=== PATIENT | male | born 1965 | race Caucasian/White ===

== ENCOUNTER 2023-06-21 04:16 | Inpatient (IN) | payer BC, SELFPAY ==
[2023-06-21 05:21] VITALS: BMI 32.3
[2023-06-21 06:00] VITALS: BP 172/100; PULSE 80; RESP 18; TEMP 36.6; O2SAT 98
--- NOTE | 2023-06-21 07:07 | PC.ADMIT ---
Patient arrived to at approximately 0430 via ems, wouldnt sign a CV before entering the unit. Lakhwinder states I dont need to be here so ems took him to the ED where the MD signed a section 12B. Patient back to unit very frustrated and angry. He states that nobody told him he was going to transfer here and that everything he has said was misconstrued. RN spent some time talking him down and listening. Patient states he does not want medications if he doesnt have too and that he never said he was having thoughts of killing himself. He states he hasnt felt that way for at least 2 years. He states he has a therapist he has been seeing for the past 20 yrs and a woman whom he calls his sister who he has known for 50 yrs. He is alert, educated, oriented. His skin is intact. He is independent and took a shower this morning. WIll let patient get some sleep and re- approach with paperwork this morning, evening, or night. No acute issues, Will continue to monitor.
--- NOTE | 2023-06-21 13:13 | HO.PM.IMCN ---
History of Present Illness Data of Consult Service Date: 06/21/23 Requesting physician: Domiinc Eaton Primary Care Provider: Unknown Physician HPI Reason for consult: medical h&p 57-year-old male with history of possible TIA, fatty liver disease, and history of gastric bypass surgery admitted to Psychiatry from [facility] ED with consult placed to hospitalist service for medical H and P. He had initially presented to [facility] ED due to concerns of TIA versus CVA. He had been experiencing tingling sensation left side of the face, left arm, left leg, lethargy for 2 days and then developed some word-finding difficulty. Neuro exam was benign and patient was able to feel tingling sensation on exam. Head CT was negative for any acute intracranial abnormality. He was evaluated by Neurology who felt his symptoms were psychogenic in nature. EKG showed NSR, rate [address]/T-wave abnormalities. Hematology and chemistry studies were unremarkable. He then began expressing SI and was transferred to psychiatric facility for further management. He states he has had similar episodes to this in the past. He does take a baby aspirin on a daily basis. Blood pressure this morning was elevated 172/100 but states he no longer has hypertension since his gastric bypass procedure. Blood pressure was rechecked on exam and was 150/82. He does not smoke cigarettes is not diabetic does not use illicit substances. Occasional alcohol use. Does smoke marijuana on a daily basis. He states that he does take Zyrtec on a daily basis as well as cyclobenzaprine 10 mg at bedtime to help with restless leg syndrome. He otherwise has no complaints. [facility] Medical History (Updated 06/21/23 @ 13:22 by CLINTON Gregorio) History of TIA (transient ischemic attack) NAFLD (nonalcoholic fatty liver disease) Surgical History (Updated 06/21/23 @ 13:23 by CLINTON Gregorio) History of gastric bypass Social History Household Members: Unknown / Unable to assess Housing: Unknown / Unable to assess Do you presently have visiting nurse or other home services: No Unable to assess alcohol history related to: Refusing to respond Patient Tobacco Use Status: Refuse Tobacco use screen Use of substances other than those prescribed or required for medical reasons: Unknown Currently Displaying Signs/Symptoms of Drug Intoxication Withdrawal: No Advance Directives: No Advance Directives Information Provided: No Do you have thoughts of harming others: None Do you have a plan to hurt others: No Plan Recently lost weight without trying: No Eating poorly because of decreased appetite: No Nutrition Risks: No Nutritional Risk Meds Allergies Allergy/AdvReac Type Severity Reaction Status Date / Time fluocinonide Allergy Rash Verified 06/20/23 22:47 Penicillins Allergy Rash Verified 06/20/23 22:48 shellfish derived Allergy Anaphylaxis Verified 06/20/23 22:47 Active Medications: Current Medications Acetaminophen (Acetaminophen 325 Mg Tablet) 650 mg PO Q6H PRN PRN Reason: Headache/Pain Mild Scale (1-3) Al Hydroxide/Mg Hydroxide (Magnesium Hydrox/Alum Hydrox 30 Ml Oral.Susp) 30 ml PO Q6H PRN PRN Reason: Heartburn/Nausea Hydroxyzine HCl (Hydroxyzine Hcl 25 Mg Tablet) 25 mg PO Q6H PRN PRN Reason: Anxiety Magnesium Hydroxide (Milk Of Magnesia 30 Ml Oral.Susp) 30 ml PO DAILY PRN PRN Reason: Constipation Nicotine Polacrilex (Nicotine Polacrilex 2 Mg Gum) 4 mg BUCCAL Q2H PRN PRN Reason: Nicotine Cravings Olanzapine (Olanzapine 5 Mg Tablet) 5 mg PO TID PRN PRN Reason: agitation Trazodone HCl (Trazodone Hcl 50 Mg Tablet) 50 mg PO BEDTIME MRX1 PRN PRN Reason: Insomnia Physical Exam Vital Signs and Narrative: Vital Signs: Last Vital Signs Temp 97.8 F 06/21/23 06:00 Pulse 80 06/21/23 06:00 Resp 18 06/21/23 06:00 BP 172/100 H 06/21/23 06:00 Pulse Ox 98 06/21/23 06:00 O2 Del Method Room Air 06/21/23 06:00 BMI result Body Mass Index 32.3 Constitutional - Awake and Alert, No apparent distress Eyes - PERRLA, EOMI Cardiovascular - S1S2, RRR, No edema Respiratory - Normal lung expansion, Normal respiratory effort, No respiratory distress, CTA bilaterally Gastrointestinal - NT / ND; +BS; No rebound or guarding Extremities - no calf tenderness bilaterally, no swelling Musculoskeletal - Normal inspection, normal ROM Skin - Warm/Dry Neurological - Alert & oriented x3, CN II-XII in tact, 5/5 strength BUE and BLE Psychological - Appropriate affect Assessment and Plan (1) Routine medical exam: Status: Acute Plan 57-year-old male with history of possible TIA, fatty liver disease, and history of gastric bypass surgery admitted to Psychiatry from [facility] ED with consult placed to hospitalist service for medical H and P. #Mood disorder/SI -plan per psychiatry #Possible TIA -Most recent episode paresthesias appears psychogenic rather then neurologic with negative head CT and reassuring neuro exam. Neuro exam today is nonfocal -Continue asa #Elevated blood pressure readings -pt report aggitation when bp checked earlier today -On manual recheck by me on exam, bp slightly elevated 150/82. -Monitor blood pressures -initiate antihypertensive if needed Thank you for allowing me to participate in this consult. Signing off at this time. Please do not hesitate to call for further questions. Time Spent With Patient Time: Total time managing care of this patient today ____ minutes.
[2023-06-21] MEDS: Loratadine 10 MG TABLET PO (15:05)
[2023-06-21 19:33] VITALS: BP 142/88; PULSE 88; RESP 18; TEMP 36.6; O2SAT 97
--- NOTE | 2023-06-21 19:37 | P.HPPS_ITS ---
HPI Date of Service: 06/21/23 Chief Complaint: Depressed Sources of Information: patient interviewed, chart reviewed and crisis/core team assessment reviewed HPI Subjective Notes: Juan Warning and Section 12B Healthcare Proxy: No Guardianship: No Medical Problems Affecting Mental Status: No Narrative: 57 yo male, to ER with stroke-like symptoms, severe anxiety, with SI due to significant job stress. Section 12B to [facility]. Pt reports, I am not suicidal, I love my life . 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 I was drained dry . Reports out of control anxiety where he needed to identify his triggers sooner and identify strategies to redirect himself. Reports a similiar episode in 2020. Identifies stressors as of mother 2018 where there were no services or support and difficult memories of a tough upbringing, of his dog 2022 as well. Pt is planning a move to [place] to live with friends. [employer] the stress hit so much, I had a meltdown . Staff, customers, no breaks. Reports sx were the worst he has ever felt and thought he was having an [place]/CVA. Pt will return to psychotherapy and declines medication intervention. He is finding the milieu supportive and helpful. Past Psychiatric History: Pt has a therapist of 20 years whom he is reconnecting with. She has made contact with him on the unit for support and will offer and appt with discharge. Medical Evaluation Reviewed: Yes [facility] Medical History (Updated 06/22/23 @ 17:03 by Emili Bañuelos APRN) History of TIA (transient ischemic attack) NAFLD (nonalcoholic fatty liver disease) Recurrent moderate major depressive disorder with anxiety Surgical History History of gastric bypass Family History: Parents were functioning alcoholics Brother alcoholic, of [place] No suicides No mental health diagnosed or identified he reports. Social History: Pt is a manager education at [employer] Planning a move to [place] to live with friends. Will visit for a wedding in Jun Lives alone Single , no children Parents Brother Substance History: Alcohol by history- no current substance use issues Trauma History: Physical, Emotional Diagnostics Vital Signs (24Hr): Vital Signs - 24 hr 06/21/23 06:00 06/21/23 19:33 Temperature 97.8 F 97.8 F Pulse Rate 80 88 Respiratory Rate 18 18 Blood Pressure 172/100 H 142/88 H Pulse Oximetry 98 97 Oxygen Delivery Method Room Air BMI result Body Mass Index 32.3 Labs Labs: CBC- MCHC 36.6, Plt 100, CMP- Carbox Dioxide 19, AST 68, ALT 65 Meds/Allergies Allergies Allergies Allergy/AdvReac Type Severity Reaction Status Date / Time fluocinonide Allergy Rash Verified 06/20/23 22:47 Penicillins Allergy Rash Verified 06/20/23 22:48 shellfish derived Allergy Anaphylaxis Verified 06/20/23 22:47 Mental Status Exam Mental Status Exam Patient Appearance: Appropriate Patient Orientation: Person, Place, Time and Situation Level of Consciousness: Alert Patient Behavior: Appropriate, Talkative, Cooperative and Good Eye Contact Mood Description: Appropriate and Anxious Affect Description: Anxious Patient Cognition Impaired: No Ability to Follow Directions: Good Speech Pattern: Spontaneous Speech Memory Description: Intact Hallucinations: None Delusions: Not Present Thought Process: Goal Oriented Thought Content: positive for Goal Oriented Depressive Symptoms: Increased Anxiety, Muscle Tension, Muscle Pain, Loss of Int. in Activity, Hopelessness, Isolating-Friends/Family, Increased Fatigue, Thoughts of /Suicide (denies) and Loss of Energy Judgement: Good Assessment & Plan Assessment & Plan (1) Recurrent moderate major depressive disorder with anxiety: Status: Acute Code(s): F33.1 - Major depressive disorder, recurrent, moderate; F41.9 - Anxiety disorder, unspecified Plan 57 yo male, to ER with physical sx similiar to [place], CVA with significant anxiety/stress which appears to be precipitated by his work and stressors originating from work. Hx of major depression. Pt, at this time is on a Section 12B. He denies SI, but is engaged in the milieu and utilizing his time productively to learn coping skills and methods to manage his symptoms. He has a therapist of 20 years he has just reconnected with and she has made contact with him on the unit. Plan: Pt declines psychopharmacology Encourage milieu, alliance building, aftercare planning. Collateral contacts as needed. Section 12 B to 06/24/23. Patient educated on: therapeutic strategies Informed Consent: understands Reason for continued inpatient stay Substantial Risk for: harm to self and rapid decompensation Statement Statement: I have reviewed the history and physical and performed a pertinent examination on my patient. No changes have occurred unless specified. If the History and Physical was not performed prior to admission, the Hospitalist's service will be consulted for completing the admission physical. Time Spent With Patient Time: Total time managing care of this patient today ____ minutes.
[2023-06-21] MEDS: Cyclobenzaprine HCl 10 MG TABLET PO (20:10)
[2023-06-21] MEDS: traZODone HCL 50 MG TABLET PO (20:11)
[2023-06-21] MEDS: hydrOXYzine HCL 25 MG TABLET PO (20:11)
[2023-06-22 08:05] VITALS: BP 158/94; PULSE 79; RESP 18; TEMP 36.1; O2SAT 99
[2023-06-22] MEDS: Loratadine 10 MG TABLET PO (08:33)
--- NOTE | 2023-06-22 17:09 | P.PNPSI_ITS ---
Subjective Subjective Date of Service: 06/22/23 Reason For Visit: Depressed Subjective Notes: Section 12B Healthcare Proxy: No Guardianship: No Medical Problems Affecting Mental Status: No Interim History: Pt reports he finds milieu and team a good support and learning environment. Reports feeling improved. Denies SI, plan, intent. Discussed discharge for 06/24. Given information on Lmethylfolate as an option for depression treatment Medication Compliance: Yes Side effects from medications: No Attending Groups: Yes Review of Systems Acute medical concerns: No Medical Review of Systems: unchanged Review of Systems Review of Systems Yes all other systems are reviewed and are negative Reports behavioral changes Psychiatric: Reports anxiety, Reports behavioral changes, Reports depression, Reports difficulty concentrating, Reports hopelessness, Reports anhedonia, Reports panic attacks and Reports suicidal ideation (denies at this time) Mental Status Exam Mental Status Exam Patient Appearance: Appropriate Patient Orientation: Person, Place, Time and Situation Level of Consciousness: Alert Patient Behavior: Appropriate, Talkative, Cooperative and Good Eye Contact Mood Description: Appropriate and Anxious Affect Description: Anxious Patient Cognition Impaired: No Ability to Follow Directions: Good Speech Pattern: Spontaneous Speech Memory Description: Intact Hallucinations: None Delusions: Not Present Thought Process: Goal Oriented Thought Content: positive for Goal Oriented Depressive Symptoms: Increased Anxiety, Muscle Tension, Muscle Pain, Loss of Int. in Activity, Hopelessness, Isolating-Friends/Family, Increased Fatigue, Thoughts of /Suicide (denies) and Loss of Energy Judgement: Good Diagnostics Vital Signs (24Hr): Vital Signs - 24 hr 06/21/23 19:33 06/22/23 08:05 Temperature 97.8 F 96.9 F Pulse Rate 88 79 Respiratory Rate 18 18 Blood Pressure 142/88 H 158/94 H Pulse Oximetry 97 99 Oxygen Delivery Method Room Air BMI result Body Mass Index 32.3 Medications Medications Current Medications Acetaminophen (Acetaminophen 325 Mg Tablet) 650 mg PO Q6H PRN PRN Reason: Headache/Pain Mild Scale (1-3) Al Hydroxide/Mg Hydroxide (Magnesium Hydrox/Alum Hydrox 30 Ml Oral.Susp) 30 ml PO Q6H PRN PRN Reason: Heartburn/Nausea Cyclobenzaprine HCl (Cyclobenzaprine Hcl 10 Mg Tablet) 10 mg PO BEDTIME ZITA Last Admin: 06/21/23 20:10 Dose: 10 mg Hydroxyzine HCl (Hydroxyzine Hcl 25 Mg Tablet) 25 mg PO Q6H PRN PRN Reason: Anxiety Last Admin: 06/21/23 20:11 Dose: 25 mg Loratadine (Loratadine 10 Mg Tablet) 10 mg PO DAILY ZITA Last Admin: 06/22/23 08:33 Dose: 10 mg Magnesium Hydroxide (Milk Of Magnesia 30 Ml Oral.Susp) 30 ml PO DAILY PRN PRN Reason: Constipation Nicotine Polacrilex (Nicotine Polacrilex 2 Mg Gum) 4 mg BUCCAL Q2H PRN PRN Reason: Nicotine Cravings Olanzapine (Olanzapine 5 Mg Tablet) 5 mg PO TID PRN PRN Reason: agitation Trazodone HCl (Trazodone Hcl 50 Mg Tablet) 50 mg PO BEDTIME MRX1 PRN PRN Reason: Insomnia Last Admin: 06/21/23 20:11 Dose: 50 mg Allergies Allergies Allergy/AdvReac Type Severity Reaction Status Date / Time fluocinonide Allergy Rash Verified 06/20/23 22:47 Penicillins Allergy Rash Verified 06/20/23 22:48 shellfish derived Allergy Anaphylaxis Verified 06/20/23 22:47 Assessment & Plan Assessment & Plan (1) Recurrent moderate major depressive disorder with anxiety: Status: Acute Code(s): F33.1 - Major depressive disorder, recurrent, moderate; F41.9 - Anxiety di sorder, unspecified Plan 57 yo male, to ER with physical sx similiar to [place], CVA with significant anxiety/stress which appears to be precipitated by his work and stressors originating from work. Hx of major depression. Pt, at this time is on a Section 12B. He denies SI, but is engaged in the milieu and utilizing his time productively to learn coping skills and methods to manage his symptoms. He has a therapist of 20 years he has just reconnected with and she has made contact with him on the unit. Plan: Pt declines psychopharmacology Encourage milieu, alliance building, aftercare planning. Collateral contacts as needed. Section 12 B to 06/24/23. 06/22/23 TSH, B12,Folate, A1C, Lipid Panel Patient educated on: therapeutic strategies Informed Consent: understands Reason for continued inpatient stay Substantial Risk for: harm to self Time Spent With Patient Time: Total time managing care of this patient today ____ minutes.
[2023-06-22 17:33] VITALS: BP 144/85; PULSE 83; TEMP 35.6
[2023-06-22] MEDS: Cyclobenzaprine HCl 10 MG TABLET PO (20:08)
[2023-06-23] MEDS: Loratadine 10 MG TABLET PO (08:43)
[2023-06-23 08:50] VITALS: BP 147/82; PULSE 80; RESP 18; TEMP 36.2; O2SAT 96
--- NOTE | 2023-06-23 09:00 | ECG_ITS ---
Test Reason : CHEST PAIN PRIOR TO ADM Blood Pressure : / mmHG Vent. Rate : 075 BPM Atrial Rate : 075 BPM P-R Int : 136 ms QRS Dur : 080 ms QT Int : 350 ms P-R-T Axes : 059 006 038 degrees QTc Int : 390 ms Normal sinus rhythm Nonspecific T wave abnormality Abnormal ECG No previous ECGs available Referred By: Emili Bañuelos Electronically Signed By:WIL AVALOS
[2023-06-23 09:16] LABS: Estimated Average Glucose 103 mg/dL; Hemoglobin A1c % 5.2 % (<6.0)
[2023-06-23 09:26] VITALS: BMI 32.3
[2023-06-23 09:38] LABS: Cholesterol 230 mg/dL (<200); HDL Cholesterol 39 mg/dL (>40); LDL Cholesterol Calculated 163 mg/dL (<100); Triglycerides 142 mg/dL (<150)
[2023-06-23 10:08] LABS: Folate 13.8 ng/mL (> or = 4.0); Vitamin B12 1348 pg/mL (200-900)
[2023-06-23 19:45] VITALS: BP 157/86; PULSE 65; RESP 18; TEMP 36.3; O2SAT 97
[2023-06-23] MEDS: traZODone HCL 50 MG TABLET PO (20:54)
[2023-06-23] MEDS: Cyclobenzaprine HCl 10 MG TABLET PO (20:54)
--- NOTE | 2023-06-23 21:17 | P.PNPSI_ITS ---
Subjective Subjective Date of Service: 06/23/23 Reason For Visit: Depressed Subjective Notes: Section 12B Healthcare Proxy: No Guardianship: No Medical Problems Affecting Mental Status: No Interim History: Section 12B to 06/24/23. Pt is not committable. He is not suicidal nor homicidal, manic, or psychotic. He reports he has found his admission useful. We completed [facility] paperwork and discussed his future planning. He will travel to a wedding in [place] in June. He has a intermediate plan of moving to [place], however, may remain with his friends after he attends the wedding. [facility] paperwork was sent. Copies are with pt. Medication Compliance: No Side effects from medications: No Attending Groups: Yes Review of Systems Acute medical concerns: No Medical Review of Systems: unchanged Mental Status Exam Mental Status Exam Patient Appearance: Appropriate Patient Orientation: Person, Place, Time and Situation Level of Consciousness: Alert Patient Behavior: Appropriate, Talkative, Cooperative and Good Eye Contact Mood Description: Appropriate and Anxious Affect Description: Anxious Patient Cognition Impaired: No Ability to Follow Directions: Good Speech Pattern: Spontaneous Speech Memory Description: Intact Hallucinations: None Delusions: Not Present Thought Process: Goal Oriented Thought Content: positive for Goal Oriented Depressive Symptoms: Increased Anxiety, Muscle Tension, Muscle Pain, Loss of Int . in Activity, Hopelessness, Isolating-Friends/Family, Increased Fatigue, Thoughts of /Suicide (denies) and Loss of Energy Judgement: Good Diagnostics Vital Signs (24Hr): Vital Signs - 24 hr 06/23/23 08:50 Temperature 97.1 F Pulse Rate 80 Respiratory Rate 18 Blood Pressure 147/82 H Pulse Oximetry 96 Oxygen Delivery Method Room Air BMI result Body Mass Index 32.3 Labs Labs: Laboratory Results - last 48 hr 06/23/23 06/23/23 06/23/23 08:36 08:36 08:36 Estimat Average Glucose 103 Hemoglobin A1c % 5.2 Triglycerides 142 Cholesterol 230 H LDL Cholesterol, Calc 163 H HDL Cholesterol 39 L Vitamin B12 1348 H Folate 13.8 TSH 1.30 Medications Medications Current Medications Acetaminophen (Acetaminophen 325 Mg Tablet) 650 mg PO Q6H PRN PRN Reason: Headache/Pain Mild Scale (1-3) Al Hydroxide/Mg Hydroxide (Magnesium Hydrox/Alum Hydrox 30 Ml Oral.Susp) 30 ml PO Q6H PRN PRN Reason: Heartburn/Nausea Cyclobenzaprine HCl (Cyclobenzaprine Hcl 10 Mg Tablet) 10 mg PO BEDTIME ZITA Last Admin: 06/23/23 20:54 Dose: 10 mg Hydroxyzine HCl (Hydroxyzine Hcl 25 Mg Tablet) 25 mg PO Q6H PRN PRN Reason: Anxiety Last Admin: 06/21/23 20:11 Dose: 25 mg Loratadine (Loratadine 10 Mg Tablet) 10 mg PO DAILY ZITA Last Admin: 06/23/23 08:43 Dose: 10 mg Magnesium Hydroxide (Milk Of Magnesia 30 Ml Oral.Susp) 30 ml PO DAILY PRN PRN Reason: Constipation Nicotine Polacrilex (Nicotine Polacrilex 2 Mg Gum) 4 mg BUCCAL Q2H PRN PRN Reason: Nicotine Cravings Olanzapine (Olanzapine 5 Mg Tablet) 5 mg PO TID PRN PRN Reason: agitation Trazodone HCl (Trazodone Hcl 50 Mg Tablet) 50 mg PO BEDTIME MRX1 PRN PRN Reason: Insomnia Last Admin: 06/23/23 20:54 Dose: 50 mg Allergies Allergies Allergy/AdvReac Type Severity Reaction Status Date / Time fluocinonide Allergy Rash Verified 06/20/23 22:47 Penicillins Allergy Rash Verified 06/20/23 22:48 shellfish derived Allergy Anaphylaxis Verified 06/20/23 22:47 Assessment & Plan Assessment & Plan (1) Recurrent moderate major depressive disorder with anxiety: Status: Acute Code(s): F33.1 - Major depressive disorder, recurrent, moderate; F41.9 - Anxiety disorder, unspecified Plan 57 yo male, to ER with physical sx similiar to [place], CVA with significant anxiety/stress which appears to be precipitated by his work and stressors originating from work. Hx of major depression. Pt, at this time is on a Section 12B. He denies SI, but is engaged in the milieu and utilizing his time productively to learn coping skills and methods to manage his symptoms. He has a therapist of 20 years he has just reconnected with and she has made contact with him on the unit. Plan: Pt declines psychopharmacology Encourage milieu, alliance building, aftercare planning. Collateral contacts as needed. Section 12 B to 06/24/23. 06/22/23 TSH, B12,Folate, A1C, Lipid Panel 06/23/23 Discharge planning for 06/24/23. Patient educated on: therapeutic strategies Informed Consent: understands Reason for continued inpatient stay Substantial Risk for: stable for discharge Time Spent With Patient Time: Total time managing care of this patient today ____ minutes.
[2023-06-24 08:15] VITALS: BP 140/82; PULSE 88; RESP 16; TEMP 36.2; O2SAT 98
[2023-06-24] MEDS: Loratadine 10 MG TABLET PO (08:16)
--- NOTE | 2023-06-24 16:13 | P.DS_ITS ---
DS: Providers Provider Date of Service: 06/24/23 Date of admission: 06/21/23 04:16 Date of discharge: 06/24/23 Primary care physician: Unknown Physician Admitting clinician: Emili Bañuelos Attending physician on admission: Arnol Clayton Consults: 06/21/23 00:43 Consult to Hospitalist Routine Comment: Consulting Provider: Hospitalist Reason For Exam: admission physical Attending physician on discharge: Arnol Clayton Discharging clinician: Emili Bañuelos DS: Diagnosis Discharge Diagnosis (1) Recurrent moderate major depressive disorder with anxiety: Status: Acute Mental Status Exam Mental Status Exam Patient Appearance: Appropriate Patient Orientation: Person, Place, Time and Situation Level of Consciousness: Alert Patient Behavior: Appropriate, Talkative, Cooperative and Good Eye Contact Mood Description: Appropriate and Anxious Affect Description: Anxious Patient Cognition Impaired: No Ability to Follow Directions: Good Speech Pattern: Spontaneous Speech Memory Description: Intact Hallucinations: None Delusions: Not Present Thought Process: Goal Oriented Thought Content: positive for Goal Oriented Depressive Symptoms: Increased Anxiety, Muscle Tension, Muscle Pain, Loss of Int. in Activity, Hopelessness, Isolating-Friends/Family, Increased Fatigue, Thoughts of /Suicide (denies) and Loss of Energy Judgement: Good Data Data Completed and Pending Completed studies during hospitalization [Text1]: 06/23/23 06/23/23 06/23/23 08:36 08:36 08:36 Estimat Average Glucose 103 Hemoglobin A1c % 5.2 Triglycerides 142 Cholesterol 230 H LDL Cholesterol, Calc 163 H HDL Cholesterol 39 L Vitamin B12 1348 H Folate 13.8 TSH 1.30 DS: Summary Hospital Course Hospital Course: Admission to adult psychiatry for exacerbation of acute stress reaction, depression, anxiety. Pt presented with CVA-like symptoms and SI. 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 He reported some life stressors including loss-of his dog this year and of his mother in 2019. He asked for no medication intervention, however, did engage fully in the milieu after filing a three day notice. During the admission, he was able to reconnect with a therapist whom he had a twenty year alliance with as well as make plans to travel to good friends in [place] for added support. He will take a leave from work to continue therapy and his process of healing. Status at Discharge Functional status at discharge: independent ambulation Overall status at discharge: patient is progressing back to baseline Time Spent with Patient Time attestation: Total time managing care of this patient today ____ minutes. Time spent: Greater than 30 minutes Discharge Plan Discharge Anticipated Discharge Date/Time: 06/24/23 11:41 Patient Disposition: Home, Self-Care Discharge Diagnosis: Acute Stress Disorder Major Depression Anxiety Referrals: Zara: (Therapist) [Other] - 3-5 Days (Patient will follow-up with outpatient therapist regarding scheduling appointment as she did not provide scheduled appointment prior to discharge from [facility] [place] CRISTOPHER TOVAR [Other] - 07/04/23 8:15 am (IN OFFICE) Discharge Orders: Discharge Order (Routine); Ordered 06/24/23 Ordered By: Emili Bañuelos Diet: Advance to usual diet Activity on Discharge: As tolerated Stand Alone Forms: Patient Portal Discharge page, Community Support Care Plan Goals: Mood stabilization Health Concerns: Mood stabilization Plan of Treatment: Attend scheduled appointments Assessment: Pt interviewed prior to discharge and found to be fully oriented and without SI/HI. Pt has insight and demonstrates good judgment in terms of wanting to pursue treatment. Pt is not in imminent risk of harm to self or others and has a safety plan that includes presenting to the closest ER or calling 911 if feeling unsafe. Pt has been observed closely by nursing and unit staff throughout admission. Pt has not engaged in any behaviors that suggest dangerousness to self or other and has demonstrated appropriate behaviors and impulse control. Discharge Date/Time: 06/24/23 11:30
== END 2023-06-24 11:30 | disposition home or self-care (01) | DRG 751 ==
PROVIDERS: Admitting Provider Psychiatry & Neurology Psychiatry; Visit Provider Clinical Nurse Specialist Psychiatric/Mental Health, Adult
DX: F33.1 Major depressive disorder, recurrent, moderate (principal); R45.851 Suicidal ideations; K76.0 Fatty (change of) liver, not elsewhere classified; F43.0 Acute stress reaction; Z98.84 Bariatric surgery status
CPT/HCPCS: 36415; 80061; 82607; 82746; 83036; 84443; 93005

== ENCOUNTER → 2023-06-21 04:16 | Outpatient (BNV) | payer BC, SELFPAY | PROVIDERS: Admitting Provider Psychiatry & Neurology Psychiatry; Visit Provider Clinical Nurse Specialist Psychiatric/Mental Health, Adult | DX: F33.1 Major depressive disorder, recurrent, moderate (principal); F41.9 Anxiety disorder, unspecified | CPT/HCPCS: 90792; 99231; 99232; 99239 ==

== ENCOUNTER → 2023-06-21 04:16 | Outpatient (BNV) | payer BC, SELFPAY | PROVIDERS: Admitting Provider Psychiatry & Neurology Psychiatry; Visit Provider Physician Assistant | DX: Z02.2 Encounter for examination for admission to residential institution (principal) | CPT/HCPCS: 99429 ==